=== PATIENT | female | born 1995 | race Caucasian/White ===

== ENCOUNTER → 2024-10-30 | Outpatient (CLI) | payer BC, SELFPAY ==
[2024-10-30 08:48] LABS: Collection Type, Urine Clean Catch
[2024-10-30 09:37] LABS: Basophils # (Auto) 0.1 Thou/mm3 (0.0-0.2); Basophils % (Auto) 1 % (0-2.5); Eosinophils # (Auto) 0.1 Thou/mm3 (0.0-0.5); Eosinophils % (Auto) 2 % (0-10); Hematocrit 38.5 % (36.0-46.0); Hemoglobin 12.6 g/dL (12.0-16.0); Immature Granulocytes % (Auto) 0 % (0-0); Immature Granulocytes Auto 0.01 Thou/mm3 (0.00-0.00); Lymphocytes # (Auto) 2.2 Thou/mm3 (1.0-4.8); Lymphocytes % (Auto) 32 % (10-50); Mean Corpuscular HGB Conc 32.7 g/dl (31.0-37.0); Mean Corpuscular Hemoglobin 29.5 pg (25.0-35.0); Mean Corpuscular Volume 90 fL (80-100); Monocytes # (Auto) 0.7 Thou/mm3 (0.0-0.8); Monocytes % (Auto) 10 % (0-12); Neutrophils # (Auto) 3.7 Thou/mm3 (1.8-7.7); Neutrophils % (Auto) 55 % (37-80); Nucleated Red Blood Cell % 0 /100 WBC (0); Platelet Count 312 Thou/mm3 (140-440); RDW Standard Deviation 44.6 fL (36.4-46.3); Red Blood Count 4.27 Miln/mm3 (4.00-5.20); White Blood Count 6.7 Thou/mm3 (3.6-11.0)
[2024-10-30 09:44] LABS: Iron 57 mcg/dL (50-170)
[2024-10-30 09:50] LABS: Bilirubin,Urine Negative (Negative); Blood,Urine Negative (Negative); Clarity,Urine Clear (Clear/Hazy); Color,Urine Colorless (Lt Yel-Yel); Culture Indicated,Urine Not Indicated; Glucose, Urine Negative (Negative); Ketones,Urine Negative (Negative); Leukocyte Esterase,Urine Negative (Negative); Nitrite,Urine Negative (Negative); Protein,Urine Negative (Neg - Trace); RBC,Urine < 1 /hpf (0-3); Specific Gravity,Urine 1.005 (1.001-1.035); Squamous Epithelial Cell,Urine 1 /hpf (0-5); Urobilinogen,Urine Negative mg/dL (0.0-1.0); WBC,Urine < 1 /hpf (0-5)
[2024-10-30 09:52] LABS: Alanine Aminotransferase 21 U/L (10-49); Albumin, Serum 4.1 gm/dL (3.5-5.0); Albumin/Globulin Ratio 1.7 (1.2-2.2); Alkaline Phosphatase 56 U/L (46-116); Anion Gap 6 (7-16); Aspartate Amino Transferase 21 U/L (0-34); BUN/Creatinine Ratio 11 Ratio (12-20); Bilirubin,Total 0.5 mg/dL (0.3-1.2); Blood Urea Nitrogen 8 mg/dL (9-23); Calcium 9.5 mg/dL (8.3-10.6); Calcium (Corrected) 9.5 mg/dL (8.5-10.1); Carbon Dioxide 25.8 mMol/L (20.0-31.0); Cardiac Risk Estimate 2.1 RATIO (3.7-5.6); Chloride 105 mMol/L (98-107); Cholesterol 156 mg/dL (132-200); Creatinine (Component) 0.7 mg/dL (0.6-1.3); Globulin 2.4 gm/dL (2.3-3.5); Glucose 87 mg/dL (74-106); HDL Cholesterol 76 mg/dL (40-60); LDL Cholesterol,Calculated 65 mg/dL (0-130); Osmolality,Calculated 271 (275-295); Potassium 4.4 mMol/L (3.4-5.1); Sodium 137 mMol/L (136-145); Thyroid Stimulating Hormone 1.16 uIU/mL (0.55-4.78); Total Protein 6.5 gm/dL (5.7-8.2); Triglycerides 77 mg/dL (30-150); Vitamin D 25 Hydroxy Total 49.3 ng/mL (7.3-40.2); eGFR > 60 See Note
== END | disposition home or self-care (01) ==
LOC: COPL 08:18
PROVIDERS: PCP Nurse Practitioner Family; Referring Provider Nurse Practitioner Family; Visit Provider Nurse Practitioner Family
DX: Z00.00 Encounter for general adult medical examination without abnormal findings (principal)
CPT/HCPCS: 36415; 80053; 80061; 81001; 82306; 83540; 84443; 85025